=== PATIENT | male | born 1980 | race Two or more races ===

== ENCOUNTER 2019-01-24 10:49 | Emergency (ER) | payer SELFPAY ==
[2019-01-24] MEDS ORDERED: ACETAMINOPHEN 325 MG TABLET PO ONE (11:26)
--- NOTE | 2019-01-24 11:28 | ER Document Report ---
ED Medical Screen (RME) - General Chief Complaint: Headache Stated Complaint: HEADACHE Time Seen by Provider: 01/24/19 11:22 Primary Care Provider: PATRICIA SANCHEZ [Primary Care Provider] - Follow up as needed Mode of Arrival: Ambulatory Information source: Patient TRAVEL OUTSIDE OF THE [place] IN LAST 30 DAYS: No - HPI Patient complains to provider of: Headache Notes: 01/24/19 11:26 Patient here with complaints of headache. The patient states that he was working in the yard about 6 days ago when he had a sudden onset headache. He states that he felt like somebody hit him in the head. He had a constant headache since this occurred. It seems to get better with Tylenol for a few hours and then returns. No head injury. No blood thinners. No history of headaches. He does have a history of hypertension, he was supposed to be taking blood pressure medication but has not been on it for the last 2 years. He denies any numbness, tingling, weakness. Exam Nontoxic, no distress. Nonfocal neurological exam. Heart sounds normal. Lungs clear and equal throughout. Plan CBC, CMP, coags, head CT, Tylenol. An initial examination was made on the patient as part of the triage process, and it was determined a more comprehensive evaluation was necessary. Initial labs were ordered and patient was transferred to another provider in the ED who assumed care and finished evaluation and plan. - Related Data Allergies/Adverse Reactions: No Known Allergies Allergy (Verified 01/24/19 11:18) Past Medical History - Social History Chew tobacco use (# tins/day): No Frequency of alcohol use: weekends Drug Abuse: None - Past Medical History Cardiac Medical History: Reports: Hx Hypertension Renal/ Medical History: Denies: Hx Peritoneal Dialysis Physical Exam - Vital signs Vitals: Temp Pulse Resp BP Pulse Ox 98.0 F 68 20 188/115 H 98 01/24/19 11:04 01/24/19 11:04 01/24/19 11:04 01/24/19 11:04 01/24/19 11:04 Course - Vital Signs Vital signs: Temp Pulse Resp BP Pulse Ox 98.0 F 68 20 188/115 H 98 01/24/19 11:04 01/24/19 11:04 01/24/19 11:04 01/24/19 11:04 01/24/19 11:04 Doctor's Discharge - Discharge Referrals: LOCALMD,NO [Primary Care Provider] - Follow up as needed
--- NOTE | 2019-01-24 12:03 | RADIOLOGY REPORT (SQ) ---
EXAM DESCRIPTION: CT HEAD WITHOUT COMPLETED DATE/TIME: 01/24/2019 11:49 am REASON FOR STUDY: HEADACHE COMPARISON: None. TECHNIQUE: Axial images acquired through the brain without intravenous contrast. Images reviewed wi th bone, brain and subdural windows. Additional sagittal and coronal reconstructions were generated. Images stored on PACS. All CT scanners at this facility use dose modulation, iterative reconstruction, and/or weight based d osing when appropriate to reduce radiation dose to as low as reasonably achievable (ALARA). [facility]: Dose Right [facility]: CareDose [facility]: Dose Right [facility]: Teradose 4D [facility]: [employer] Games RADIATION DOSE: CT Rad equipment meets quality standard of care and radiation dose reduction techniq ues were employed. CTDIvol: 53.2 mGy. DLP: 1044 mGy-cm. mGy. LIMITATIONS: None. FINDINGS: VENTRICLES: Normal size and contour. CEREBRUM: No masses. No hemorrhage. No midline shift. No evidence for acute infarction. Normal gra y/white matter differentiation. No areas of low density in the white matter. CEREBELLUM: No masses. No hemorrhage. No alteration of density. No evidence for acute infarction. EXTRAAXIAL SPACES: No fluid collections. No masses. ORBITS AND GLOBE: No intra- or extraconal masses. Normal contour of globe without masses. CALVARIUM: No fracture. PARANASAL SINUSES: No fluid or mucosal thickening. SOFT TISSUES: No mass or hematoma. OTHER: No other significant finding. IMPRESSION: No acute intracranial pathology. No noncontrast CT findings to explain headache. EVIDENCE OF ACUTE STROKE: NO. COMMENT: Quality ID # [id number]: Final reports with documentation of one or more dose reduction techniques (e.g., Automated exposure control, adjustment of the mA and/or kV according to patient size, use of iterative reconstruction technique) TECHNICAL DOCUMENTATION: JOB ID: [id number] [employer]- All Rights Reserved Reading location - IP/workstation name: [email or web address]
[2019-01-24 12:08] LABS: ABSOLUTE BASOPHILS # (AUTO) 0.1 10^3/uL (0.0-0.2); ABSOLUTE EOSINOPHILS # (AUTO) 0.4 10^3/uL (0.0-0.6); ABSOLUTE LYMPHOCYTES (AUTO) 1.9 10^3/uL (0.5-4.7); ABSOLUTE MONOCYTES (AUTO) 0.5 10^3/uL (0.1-1.4); ABSOLUTE NEUT (AUTO) 3.6 10^3/uL (1.7-8.2); BASOPHILS % (AUTO) 0.9 % (0-2); EOSINOPHILS % (AUTO) 6.6 % (0-6); HEMOGLOBIN 16.9 g/dL (13.5-17.0); LYMPHOCYTES % (AUTO) 29.1 % (13-45); MEAN CORPUSCULAR HGB CONC 34.5 g/dL (32.0-36.0); MEAN CORPUSCULAR VOLUME 90 fl (80-97); MONOCYTES % (AUTO) 7.5 % (3-13); PLATELET COUNT 242 10^3/uL (150-450); RED BLOOD COUNT 5.45 10^6/uL (4.35-5.55); SEGMENTED NEUTROPHILS % (AUTO) 55.9 % (42-78); TOTAL CELLS COUNTED % (AUTO) 100 %; WHITE BLOOD COUNT 6.4 10^3/uL (4.0-10.5)
[2019-01-24 12:13] LABS: PROTHROMBIN TIME 12.6 SEC (11.4-15.4)
[2019-01-24 12:14] LABS: PARTIAL THROMBOPLASTIN TIME 27.6 SEC (23.5-35.8)
[2019-01-24 12:28] LABS: ALANINE AMINOTRANSFERASE 38 U/L (21-72); ALBUMIN 4.5 g/dL (3.5-5.0); ALKALINE PHOSPHATASE 60 U/L (38-126); ANION GAP 11 (5-19); ASPARTATE AMINO TRANSFERASE 29 U/L (17-59); BILIRUBIN,DIRECT 0.2 mg/dL (0.0-0.4); BILIRUBIN,TOTAL 0.8 mg/dL (0.2-1.3); BLOOD UREA NITROGEN 15 mg/dL (7-20); CALCIUM 9.7 mg/dL (8.4-10.2); CARBON DIOXIDE 27 mmol/L (22-30); CHLORIDE 105 mmol/L (98-107); GLUCOSE 92 mg/dL (75-110); POTASSIUM 4.4 mmol/L (3.6-5.0); SODIUM 143.4 mmol/L (137-145); TOTAL PROTEIN 7.5 g/dL (6.3-8.2)
--- NOTE | 2019-01-24 14:18 | ER Document Report ---
ED Headache - General Chief Complaint: Headache Stated Complaint: HEADACHE Time Seen by Provider: 01/24/19 11:22 Primary Care Provider: PATRICIA SANCHEZ [Primary Care Provider] - Follow up as needed Mode of Arrival: Ambulatory Information source: Patient Notes: Patient is a 38-year-old male comes emergency room complaining of headache for 6 days. Patient states he was working on the yard when he had a sudden onset of headache denied any visual changes. States he has no history of headaches in the past. He does state however that he has a history of hypertension which he stopped his blood pressure medication 2 years ago after the loss of weight. He states he had similar headaches at that point time as well. Patient comes in today with a blood pressure at triage 188/115. He also states he is under a large amount of family stress currently. Headaches are somewhat relieved with some Tylenol but return eventually. Patient works in construction field. Denie s any other medical problems. Denies any family history of strokes, aneurysms etc. TRAVEL OUTSIDE OF THE [place] IN LAST 30 DAYS: No - HPI Patient complains to provider of: Headache Onset: Other - 6 days ago Onset was: Gradual Timing: Better Quality of pain: Achy Severity: Moderate Pain Level: 3 Context: denies: Head injury, Meningitis exposure, Tick bite Associated symptoms: denies: Fever, Motion sickness, Nausea/vomiting, Neck pain, Photophobia, Stiff neck, Tingling/numb sensation, Trouble walking Exacerbated by: denies: Light, Noise, Movement, Position Similar symptoms previously: Yes Recently seen / treated by doctor: No - Related Data Allergies/Adverse Reactions: No Known Allergies Allergy (Verified 01/24/19 11:18) Past Medical History - General Information source: Patient - Social History Smoking Status: Never Smoker Cigarette use (# per day): No Chew tobacco use (# tins/day): No Smoking Education Provided: No Frequency of alcohol use: None Drug Abuse: None Lives with: Family Family History: None, Reviewed & Not Pertinent Patient has suicidal ideation: No Patient has homicidal ideation: No - Past Medical History Cardiac Medical History: Reports: Hx Hypertension Renal/ Medical History: Denies: Hx Peritoneal Dialysis Review of Systems - Review of Systems Constitutional: No symptoms reported EENT: No symptoms reported Cardiovascular: No symptoms reported Respiratory: No symptoms reported Gastrointestinal: No symptoms reported Genitourinary: No symptoms reported Male Genitourinary: No symptoms reported Musculoskeletal: No symptoms reported Skin: No symptoms reported Hematologic/Lymphatic: No symptoms reported Neurological/Psychological: No symptoms reported, Headaches -: Yes All other systems reviewed and negative Physical Exam - Vital signs Vitals: Temp Pulse Resp BP Pulse Ox 98.0 F 68 20 188/115 H 98 01/24/19 11:04 01/24/19 11:04 01/24/19 11:04 01/24/19 11:04 01/24/19 11:04 Interpretation: Hypertensive - Notes Notes: PHYSICAL EXAMINATION: GENERAL: Well-appearing, well-nourished and in no acute distress. HEAD: Atraumatic, normocephalic. EYES: Pupils equal round and reactive to light, extraocular movements intact, sclera anicteric, conjunctiva are normal. ENT: Nares patent, oropharynx clear without exudates. Moist mucous membranes. NECK: Normal range of motion, supple without lymphadenopathy LUNGS: Breath sounds clear to auscultation bilaterally and equal. No wheezes rales or rhonchi. HEART: Regular rate and rhythm without murmurs Musculoskeletal: Normal range of motion, no pitting or edema. No cyanosis. NEUROLOGICAL: Normal speech, normal gait. Normal sensory, motor exams. Patient's neurological exam is normal 100%. No deficits are noted. PSYCH: Normal mood, normal affect. SKIN: Warm, Dry, normal turgor, no rashes or lesions noted. Course - Re-evaluation Re-evalutation: 01/24/19 14:18 Discussed with patient he states that he had similar headaches to this several years ago before he started blood pressure medication. That time he states he was much more overweight and he lost weight after he been placed on lisinopril and so he stopped lisinopril after a few years of use. Since that time he is been feeling good until the headache started to return again. At this time I do not believe patient needs a meet our work-up or CT of his head given he has a good history of headache with that elevated diastolic hypertension. We will start him on lisinopril/hydrochlorothiazide and patient will monitor his blood pressure he has a machine at home. He has been instructed to return here if the headaches do not go away within the next few days. At that point if he returns a CT would probably be warranted. Neurologically speaking he is back to 100% and his headaches come and go. He notices more under stress. - Vital Signs Vital signs: Temp Pulse Resp BP Pulse Ox 98.0 F 68 20 188/115 H 98 01/24/19 11:04 01/24/19 11:04 01/24/19 11:04 01/24/19 11:04 01/24/19 11:04 - Laboratory Result Diagrams: 01/24/19 11:52 01/24/19 11:52 Laboratory results interpreted by me: 01/24/19 11:52 Eosinophils % 6.6 H Discharge - Discharge Clinical Impression: Hypertension Qualifiers: Hypertension type: unspecified Qualified Code(s): I10 - Essential (primary) hypertension Disposition: HOME, SELF-CARE Instructions: High Blood Pressure ([facility]) Additional Instructions: As we discussed I believe that your headaches are related to your blood pressure and stress levels. Monitor your blood pressures and the good way to do that is in the morning when you get up sometime in the late morning sometime early afternoon sometime early evening and then before bedtime if possible. Keep a log of your heart rate as well. Also keep a log and when you take your blood pressure medication. Highly suggest that you be aware that if the headaches remain after 3 or 4 days that you return for a further work-up. Should you have any concerns or problems or you feel like the headaches are getting worse return sooner. Remember I have informed you that sometimes we start dropping blood pressures you feel worse than he did before the medication started this will even itself out in 10 to 14 days. So continue to take your medication. Prescriptions: Lisinopril/Hydrochlorothiazide [Lisinopril-Hctz 20-12.5 mg Tab] 1 each PO DAILY #30 tablet Forms: Elevated Blood Pressure, Return to Work Referrals: LOCALMD,NO [Primary Care Provider] - Follow up as needed
[2019-01-24 15:18] VITALS: BP 186/109
== END 2019-01-24 15:25 | disposition home or self-care (01) ==
LOC: ER 10:49
DX: I10 Essential (primary) hypertension (principal); R51 Headache
CPT/HCPCS: 36415; 70450; 80053; 85025; 85610; 85730; 99284